=== PATIENT | male | born 1960 | race Caucasian/White ===

== ENCOUNTER → 2023-05-02 | Emergency (ER) | payer MEDICAID ==
[~2023-05-02] VITALS: Ht 167.6 cm; Wt 85.7 kg
[~2023-05-02] MED LIST: AMLO10TA4 PO; ASPIRIN 81 MG TAB.CHEW ONE; CLOP75TA15 PO; GLIM2TAB31 PO; INDA1.255 PO; METF-440 PO; NITR0.4T48 SL; PERI8TAB4 PO; SITA1TAB6 PO; [UNRECOGNIZED DRUG - MIXTURE] PO
[2023-05-02 13:04] LABS: CALCIUM, SERUM 8.8 mg/dL (8.5-10.1); CARBON DIOXIDE 27 mmol/L (21-32); CHLORIDE 103 mmol/L (98-107); CREATININE 0.9 mg/dL (0.6-1.3); GLUCOSE 171 mg/dL (74-106); SODIUM SERUM 141 mmol/L (136-145); UREA NITROGEN, BLOOD 11 mg/dL (7-18)
[2023-05-02 13:19] LABS: BASOPHILS % (AUTO) 0.3 % (0.0-2.0); EOSINOPHILS % (AUTO) 0.9 % (0.0-6.0); HEMATOCRIT 44 % (39-51); HEMOGLOBIN 14.9 g/dL (13.5-17.5); LYMPHOCYTES % (AUTO) 24.6 % (20.0-44.0); MEAN CORPUSCULAR HEMOGLOBIN 29 PG (26.0-33.0); MEAN CORPUSCULAR HGB CONC 34 g/dl (31.0-36.0); MEAN CORPUSCULAR VOLUME 86 fL (80-96); MONOCYTES % (AUTO) 8.5 % (2.0-12.0); NEUTROPHILS % (AUTO) 65.7 % (43.0-81.0); PLATELET COUNT (AUTO) 274 K/uL (150-450); RED BLOOD CELL COUNT(AUTO) 5.08 MIL/uL (4.5-6.0); RED CELL DISTRIBUTION WIDTH 12.9 % (11.5-15.0); WHITE BLOOD COUNT (AUTO) 11.4 K/uL (4.3-11.0)
[2023-05-02 13:20] LABS: EOSINOPHILS # (AUTO) 0.1 K/uL (0.0-0.7); LYMPHOCYTES # (AUTO) 2.8 K/uL (0.8-4.8); NEUTROPHILS # (AUTO) 7.5 K/uL (1.8-8.9)
[2023-05-02] MEDS: ASPIRIN 81 MG TAB.CHEW PO ONE (13:33)
[2023-05-02 13:49] VITALS: BP 135/80; TEMP 98.3; O2SAT 100
== END | disposition left against medical advice (07) ==
LOC: ER 12:14
DX: R07.89 Other chest pain (principal); I25.10 Atherosclerotic heart disease of native coronary artery without angina pectoris; I10 Essential (primary) hypertension; E11.9 Type 2 diabetes mellitus without complications
CPT/HCPCS: 36415; 71045-TC; 80048-TC; 84484-TC; 85025-TC

== ENCOUNTER 2023-10-10 18:29 | Emergency (ER) | payer MEDICAID, OTHER ==
[~2023-10-10] VITALS: Ht 170.2 cm; Wt 80.3 kg
[~2023-10-10 18:29] MED LIST changes: -ASPIRIN 81 MG TAB.CHEW ONE
--- NOTE | 2023-10-10 18:40 | NUR ---
ON OFF CHEST PAIN SINCE THIS MORNING,TEMPORARY RELIEF WITH NTG
--- NOTE | 2023-10-10 18:50 | NUR ---
18g established in the LAC . Blood drawn labeled at bedside and sent to lab for processing. Placed patient on manager cardiac cath/pulse ox
[2023-10-10 18:59] LABS: BASOPHILS # (AUTO) 0.1 K/uL (0.0-0.2); EOSINOPHILS # (AUTO) 0.3 K/uL (0.0-0.7); HEMATOCRIT 44 % (39-51); LYMPHOCYTES % (AUTO) 31.9 % (20.0-44.0); MEAN CORPUSCULAR HEMOGLOBIN 29 PG (26.0-33.0); MEAN CORPUSCULAR HGB CONC 34 g/dl (31.0-36.0); MEAN CORPUSCULAR VOLUME 86 fL (80-96); MONOCYTES # (AUTO) 1.2 K/uL (0.1-1.30); MONOCYTES % (AUTO) 9.6 % (2.0-12.0); NEUTROPHILS # (AUTO) 6.9 K/uL (1.8-8.9); NEUTROPHILS % (AUTO) 55.5 % (43.0-81.0); PLATELET COUNT (AUTO) 294 K/uL (150-450); RED BLOOD CELL COUNT(AUTO) 5.15 MIL/uL (4.5-6.0); RED CELL DISTRIBUTION WIDTH 13.5 % (11.5-15.0); WHITE BLOOD COUNT (AUTO) 12.4 K/uL (4.3-11.0)
[2023-10-10 19:11] LABS: CALCIUM, SERUM 9.4 mg/dL (8.5-10.1); CARBON DIOXIDE 28 mmol/L (21-32); CHLORIDE 100 mmol/L (98-107); CREATININE 1.3 mg/dL (0.6-1.3); GLUCOSE 180 mg/dL (74-106); POTASSIUM 3.8 mmol/L (3.5-5.1); SODIUM SERUM 137 mmol/L (136-145); UREA NITROGEN, BLOOD 21 mg/dL (7-18)
--- NOTE | 2023-10-10 21:50 | NUR ---
IV removed. Catheter intact and site benign. Pressure and 4x4 applied to site. No bleeding noted.Patient discharged to home in stable condition. Written and verbal after care instructions given. Patient verbalizes understanding of instruction.
[2023-10-10 21:52] VITALS: BP 141/90; TEMP 98.2; O2SAT 95
== END 2023-10-10 21:52 | disposition home or self-care (01) ==
LOC: ER 18:38
DX: R07.9 Chest pain, unspecified (principal); R00.2 Palpitations; M79.601 Pain in right arm; R06.02 Shortness of breath; I10 Essential (primary) hypertension; E11.9 Type 2 diabetes mellitus without complications; Z86.79 Personal history of other diseases of the circulatory system; Z95.5 Presence of coronary angioplasty implant and graft
CPT/HCPCS: 36415; 71045-TC; 80048-TC; 84484-TC; 85025-TC

== ENCOUNTER 2024-04-12 07:24 | Emergency (ER) | payer MEDICAID, OTHER ==
[~2024-04-12] VITALS: Ht 167.6 cm; Wt 81.6 kg
[2024-04-12 07:59] LABS: BASOPHILS # (AUTO) 0.1 K/uL (0.0-0.2); BASOPHILS % (AUTO) 0.6 % (0.0-2.0); CALCIUM, SERUM 9.6 mg/dL (8.5-10.1); CARBON DIOXIDE 31 mmol/L (21-32); CHLORIDE 103 mmol/L (98-107); CREATININE 0.9 mg/dL (0.6-1.3); EOSINOPHILS # (AUTO) 0.1 K/uL (0.0-0.7); EOSINOPHILS % (AUTO) 0.9 % (0.0-6.0); GLUCOSE 188 mg/dL (74-106); HEMATOCRIT 45 % (39-51); HEMOGLOBIN 15.4 g/dL (13.5-17.5); LYMPHOCYTES # (AUTO) 2.9 K/uL (0.8-4.8); LYMPHOCYTES % (AUTO) 28.4 % (20.0-44.0); MEAN CORPUSCULAR HEMOGLOBIN 29 PG (26.0-33.0); MEAN CORPUSCULAR HGB CONC 34 g/dl (31.0-36.0); MEAN CORPUSCULAR VOLUME 86 fL (80-96); MONOCYTES % (AUTO) 9.5 % (2.0-12.0); NEUTROPHILS # (AUTO) 6.3 K/uL (1.8-8.9); NEUTROPHILS % (AUTO) 60.6 % (43.0-81.0); PLATELET COUNT (AUTO) 329 K/uL (150-450); POTASSIUM 4.2 mmol/L (3.5-5.1); RED BLOOD CELL COUNT(AUTO) 5.23 MIL/uL (4.5-6.0); RED CELL DISTRIBUTION WIDTH 13.1 % (11.5-15.0); SODIUM SERUM 140 mmol/L (136-145); UREA NITROGEN, BLOOD 14 mg/dL (7-18); WHITE BLOOD COUNT (AUTO) 10.4 K/uL (4.3-11.0)
[2024-04-12] MEDS ORDERED: ASPIRIN 81 MG TAB.CHEW ONE (08:57)
[2024-04-12] MEDS ORDERED: CLOPIDOGREL BISULFATE 75 MG TABLET PO SCH (09:00)
[2024-04-12] MEDS ORDERED: METFORMIN 500 MG TABLET PO SCH (09:00)
[2024-04-12] MEDS ORDERED: AMLODIPINE BESYLATE 10 MG TABLET PO SCH (09:00)
[2024-04-12] MEDS ORDERED: GLIMEPIRIDE 1 MG TABLET PO SCH (09:00)
[2024-04-12] MEDS: ASPIRIN 81 MG TAB.CHEW PO ONE (09:09)
[2024-04-12] MEDS ORDERED: *INSULIN REGULAR(HUMULIN R)HUM 100 UNIT/ML VIAL SQ PRN (10:00)
[2024-04-12] MEDS ORDERED: DEXTROSE 50%-WATER 50 ML DISP.SYRIN IV PRN (10:00)
[2024-04-12] MEDS ORDERED: INSULIN REGULAR, HUMAN 100 UNIT/ML 3 ML VIAL SQ PRN (10:00)
[2024-04-12] MEDS ORDERED: CT SWABBABLE VALVE TRANS SET 1 EA INFUS.SET MC ONE (10:39)
[2024-04-12] MEDS ORDERED: IOHEXOL-350 100 ML VIAL IV ONE (10:39)
[2024-04-12] MEDS ORDERED: IV NS 0.9% 250 ML IV ONE (10:39)
[2024-04-12] MEDS ORDERED: BLOOD SUGAR DIAGNOSTIC 1 EACH STRIP VI SCH (12:00)
[2024-04-12] MEDS ORDERED: METOPROLOL TARTRATE 50 MG TABLET PO SCH (12:00)
[2024-04-12 13:34] VITALS: BP 135/82; TEMP 98.5; O2SAT 99
== END 2024-04-12 13:35 | disposition left against medical advice (07) ==
LOC: ER 07:27
DX: R07.89 Other chest pain (principal); I25.10 Atherosclerotic heart disease of native coronary artery without angina pectoris; I21.9 Acute myocardial infarction, unspecified; E11.9 Type 2 diabetes mellitus without complications; F17.200 Nicotine dependence, unspecified, uncomplicated; I10 Essential (primary) hypertension; Z79.02 Long term (current) use of antithrombotics/antiplatelets; Z79.84 Long term (current) use of oral hypoglycemic drugs; Z79.899 Other long term (current) drug therapy; Z86.73 Personal history of transient ischemic attack (TIA), and cerebral infarction without residual deficits; Z95.5 Presence of coronary angioplasty implant and graft
CPT/HCPCS: 99285; 75574; 71045; 93005 ×2; 85025; 80048; 36415; 84484 ×2; J7050; Q9967